=== PATIENT | male | born 1975 | race Caucasian/White ===

== ENCOUNTER 2021-11-30 09:08 | Emergency (ER) | payer OTHER ==
[2021-11-30] MEDS ORDERED: NAPROXEN500 MG PO (11:31)
== END 2021-11-30 11:15 | disposition home or self-care (01) ==
LOC: FER 09:08
DX: S56.911A Strain of unspecified muscles, fascia and tendons at forearm level, right arm, initial encounter (principal); M24.521 Contracture, right elbow; Z88.0 Allergy status to penicillin; X58.XXXA Exposure to other specified factors, initial encounter; Z28.310 Unvaccinated for COVID-19
CPT/HCPCS: 73080